=== PATIENT | female | born 1995 | race Caucasian/White ===

== ENCOUNTER 2022-07-08 08:59 | Inpatient (IN) | payer BC ==
[~2022-07-08] VITALS: Ht 162.6 cm; Wt 85.3 kg
[~2022-07-08 08:59] MED LIST: DOXYCYCLINE HY100 MG PO; FLUOXETINE HCL10 MG PO; GILDESS1 EACH PO; ZYRTEC10 MG PO
--- NOTE | 2022-07-08 11:45 | PR ---
[facility] [address] [place], [place] [address] Signed Progress Notes IP Datetime Report Generated by CPN: 07/08/2022 11:45 PROGRESS NOTES: [id number] VITAL SIGNS: [id number] Vital Signs: Reviewed; Within Normal Limits EXAM: [id number] Dilatation: 7.0 Effacement: 80 Station: -1 Contractions: q 2-3 min MEMBRANES: [id number] Membranes Status: Intact Comments: S: Patient well. Pain with contractions. O: AFVSS SVE: 780/-1 A/P: Patient well. Progressing through labor. Discussed options for pain management. No medications resquested at this time. Will continue to monitor. FETUS A: [id number] FHR Baseline: 130 Variability: Moderate 6-25bpm Accelerations: 15X15 Decelerations: None FHR Category: Category I Presentation: Vertex FETUS B: [id number] Signing Physician: Sonya Maldonado MD Copies: ~ *Electronically Signed* 07/08/22 1145 SONYA MALDONADO MD PATIENT NAME: GIANCARLO DANIEL PROGRESS NOTE DATE OF : [birth year] PHYSICIAN: SONYA MALDONADO MD RPT #: [id number] REPORT IS CONFIDENTIAL AND NOT TO BE RELEASED WITHOUT AUTHORIZATION
--- NOTE | 2022-07-08 13:01 | PR ---
[facility] [address] [place], [place] [address] Signed Progress Notes IP Datetime Report Generated by AUDI: 07/08/2022 13:00 PROGRESS NOTES: [id number] Impression: Normal Progression of Labor Procedures: Sterile Vag Exam Plan: Continue Present Management VITAL SIGNS: [id number] Vital Signs: Reviewed; Within Normal Limits EXAM: [id number] Dilatation: 9.0 Effacement: 90 Station: -2 Contractions: q 3 to 4 min MEMBRANES: [id number] Membranes Status: Intact Comments: No change in dilation though station improved after hands and knees. Will try emptying her bladder and sitting up to see if this will allow for further dilation and descent. FETUS A: [id number] FHR Baseline: 120 Variability: Minimal - >Undetectable to <=5bpm Accelerations: 10X10 Decelerations: None FHR Category: Category II Presentation: Vertex FETUS B: [id number] Signing Physician: Ilene Nova MD Copies: ~ *Electronically Signed* 07/08/22 1300 ILENE NOVA MD PATIENT NAME: GIANCARLO DANIEL PROGRESS NOTE DATE OF : 97 PHYSICIAN: ILENE NOVA MD RPT #: [id number] REPORT IS CONFIDENTIAL AND NOT TO BE RELEASED WITHOUT AUTHORIZATION
--- NOTE | 2022-07-09 09:22 | PR ---
[facility] [address] [place], [place] [address] Signed PP Progress Notes Datetime Report Generated by CPN: 07/09/2022 09:22 SUBJECTIVE: [id number] Pain: Within Normal Limits Nausea/Vomiting: Denies Flatus: Yes Bowel Movement: No Vital Signs: [id number] Vital Signs: Reviewed; Within Normal Limits Abdomen/Uterus: Normal Lochia: Normal Extremities: Normal Progress: Normal IMPRESSION/PLAN/PROCEDURES: [id number] Impression: Normal Progression Plan: Continue Present Management Procedures: None Progress Notes: 27 yo s/p complicated by third degree perineal laceration. Doing well. Denies CAMPBELL, CP, SOB, F/C, RUQ pain, changes in vision. Tolerating regular diet, pain controlled, passing flatus, voiding on her own and ambulating without any concerns. Baby having trouble maintaining sugars. Likey will not be discharged home today. Mom would like to stay as inpatient as well. Likely discharge home tomorrow AM. Signing Physician: Sonya Maldonado MD Copies: ~ *Electronically Signed* 07/09/22921 SONYA MALDONADO MD PATIENT NAME: GIANCARLO DANIEL PROGRESS NOTE DATE OF : 97 PHYSICIAN: SONYA MALDONADO MD RPT #: [id number] REPORT IS CONFIDENTIAL AND NOT TO BE RELEASED WITHOUT AUTHORIZATION
--- NOTE | 2022-07-09 12:52 | NUR ---
PT ALERT, ORIENTED AND CELEBRATING THE OF THEIR NEW SON! [place]. MOTHER HOLDING, DAD PRESENT. HAD GOOD VISIT GAVE BLESSING AND WILL FOLLOW
--- NOTE | 2022-07-09 17:12 | PR ---
[facility] [address] [facility] [place], [place] [address] Signed PP Progress Notes Datetime Report Generated by AUDI: 07/09/2022 17:12 SUBJECTIVE: [id number] Pain: Within Normal Limits Nausea/Vomiting: Denies Flatus: Yes Bowel Movement: No Vital Signs: [id number] Vital Signs: Reviewed; Within Normal Limits Abdomen/Uterus: Abnormal Lochia: Normal Extremities: Normal Incision: Not Applicable Progress: Normal Exam Comments: Fundus firm, NT @ U-2. H/H 8.9/26, WBC 10.8, plat 140k IMPRESSION/PLAN/PROCEDURES: [id number] Impression: Normal Progression Plan: Continue Present Management Procedures: None Progress Notes: Doing well and tolerating anemia without difficulty. Should be ready for D/C tomorrow. Signing Physician: Ilene Nova MD Copies: ~ *Electronically Signed* 07/09/22 1712 ILENE NOVA MD PATIENT NAME: GIANCARLO DANIEL PROGRESS NOTE DATE OF : 97 PHYSICIAN: ILENE NOVA MD RPT #: [id number] REPORT IS CONFIDENTIAL AND NOT TO BE RELEASED WITHOUT AUTHORIZATION
--- NOTE | 2022-07-10 07:29 | PR ---
[facility] [address] [place], [place] [address] Signed PP Progress Notes Datetime Report Generated by AUDI: 07/10/2022 07:29 SUBJECTIVE: [id number] Pain: Within Normal Limits Nausea/Vomiting: Denies Flatus: Yes Bowel Movement: No Vital Signs: [id number] Vital Signs: Reviewed; Within Normal Limits EXAM: Ongoing Cardiovascular: Not Done Respiratory: Not Done Abdomen/Uterus: Abnormal Lochia: Normal Vulva/Perineum: Not Done Breasts: Not Done CVA Tenderness: Not Done Extremities: Normal Incision: Not Applicable Progress: Normal Exam Comments: Fundus firm, NT @ U-2. IMPRESSION/PLAN/PROCEDURES: [id number] Impression: Normal Progression Plan: Discharge Procedures: None Progress Notes: Doing well. She is ready for D/C. Signing Physician: Ilene Nova MD Copies: ~ *Electronically Signed* 07/10/22728 ILENE NOVA MD PATIENT NAME: GIANCARLO DANIEL PROGRESS NOTE DATE OF : 97 PHYSICIAN: ILENE NOVA MD RPT #: [id number] REPORT IS CONFIDENTIAL AND NOT TO BE RELEASED WITHOUT AUTHORIZATION
== END 2022-07-10 11:05 | disposition home or self-care (01) | DRG 768 ==
LOC: FBCO 08:59 → FBC 09:15
PROVIDERS: ADMIT Obstetrics & Gynecology; ATTEND Obstetrics & Gynecology
PROC: 10E0XZZ Delivery of Products of Conception, External Approach (ICD-10-PCS; principal; 2022-07-08)
PROC: 0DQR0ZZ Repair Anal Sphincter, Open Approach (ICD-10-PCS; 2022-07-08)
PROC: 10907ZC Drainage of Amniotic Fluid, Therapeutic from Products of Conception, Via Natural or Artificial Opening (ICD-10-PCS; 2022-07-08)
DX: O99.344 Other mental disorders complicating childbirth (principal); Z37.0 Single live birth; O70.20 Third degree perineal laceration during delivery, unspecified; F41.9 Anxiety disorder, unspecified; F32.A Depression, unspecified; Z67.10 Type A blood, Rh positive; Z20.822 Contact with and (suspected) exposure to COVID-19; Z3A.39 39 weeks gestation of pregnancy; Z79.899 Other long term (current) drug therapy
CPT/HCPCS: 36415; 82803; 85027; 86850; 86900; 86901; 87502; A9270; C9803; J0595; J2405; J2550; J2590; J7121; U0003